=== PATIENT | male | born 1945 | race African-American/Black ===

== ENCOUNTER 2017-10-29 12:14 | Inpatient (IN) | payer MEDICARE ==
[~2017-10-29] VITALS: Ht 182.9 cm; Wt 73.0 kg
[2017-10-29] MEDS ORDERED: IPRA0.2S48 NEB (18:23)
[2017-10-29] MEDS ORDERED: ALBU2.5V38 NEB (18:23)
[2017-10-29] MEDS ORDERED: CARV6.252 PO (18:23)
[2017-10-29] MEDS ORDERED: FURO40TA5 PO (18:23)
[2017-10-29] MEDS ORDERED: BISA-79 PO (18:23)
[2017-10-29] MEDS ORDERED: LORA0.5T PO (18:23)
[2017-10-29] MEDS ORDERED: ONDA4VIA30 IVP (18:23)
[2017-10-29] MEDS ORDERED: AMIO200T2 PO (18:23)
[2017-10-29] MEDS ORDERED: HYDR-3326 PO (18:23)
[2017-10-29] MEDS ORDERED: Z GUARD REMEDY PASTE 57 GM TUBE TOP PRN (18:30)
[2017-10-29] MEDS ORDERED: MAGNESIUM HYDROXIDE 30 ML LIQUID UDC PO PRN (18:30)
[2017-10-29 19:17] VITALS: BP 87/57
--- NOTE | 2017-10-29 19:40 | NUR ---
Received pt in bed, awake and alert. No acute distress noted. Noted 4L NC, tolerating well. Complaining of generalized pain 10/10 on pain scale. Verbally responsive and able to make needs known. Noted right upper extremity triple lumen PICC, intact and patent. Garcia cath intact and draining well clear yellow urine into bag. All safety measures and fall precautions maintained. Call light and all personal belongings within reach. Will continue to monitor.
[2017-10-29] MEDS ORDERED: ONDANSETRON 4 MG/2 ML VIAL IV PRN (19:45)
[2017-10-29] MEDS ORDERED: HYDROCODONE/APAP 5-325MG TABLET PO PRN (19:45)
[2017-10-29] MEDS: CARVEDILOL 6.25 MG TABLET PO SCH (21:00)
[2017-10-29] MEDS: DOCUSATE SODIUM 100 MG CAPSULE PO SCH (21:07)
[2017-10-29] MEDS: ONDANSETRON 4 MG/2 ML VIAL IV PRN (21:09)
[2017-10-29] MEDS: HYDROCODONE/APAP 5-325MG TABLET PO PRN (21:09)
--- NOTE | 2017-10-29 21:10 | NUR ---
PRN pain medication given per MD order. Tolerated well. Safety maintained. Call light within reach.
[2017-10-29] MEDS: IPRATROPIUM BROMIDE 0.5 MG/2.5 ML NEBU NEB SCH (22:39)
[2017-10-29] MEDS: ALBUTEROL SULFATE 2.5 MG/3 ML NEBU NEB SCH (22:39)
[2017-10-29] MEDS ORDERED: DIAZEPAM 10 MG TABLET PO ONE (22:45)
--- NOTE | 2017-10-29 22:50 | NUR ---
Pt noted to be agitated, demanding for sleep medication. MD notified and ordered Diazepam 10 mg PO x 1 now. Order noted and carried out. Well tolerated. Safety maintained. Will continue to monitor. Call light within reach.
[2017-10-30] MEDS: IPRATROPIUM BROMIDE 0.5 MG/2.5 ML NEBU NEB SCH ×6 (02:30→23:05)
[2017-10-30] MEDS: ALBUTEROL SULFATE 2.5 MG/3 ML NEBU NEB SCH ×6 (02:30→23:05)
[2017-10-30 05:31] VITALS: BP 97/71
[2017-10-30] MEDS: HYDROCODONE/APAP 5-325MG TABLET PO PRN ×3 (06:34→23:19)
[2017-10-30] MEDS: PANTOPRAZOLE SODIUM 40 MG TABLET.DR PO SCH (06:34)
--- NOTE | 2017-10-30 07:00 | NUR ---
RECEIVED REPORT FROM FREIGHT CALLER, PATIENT IN BED ASLEEP. A AND O X 2. NO ACUTE DISTRESS NOTED. ON O2 3LPM VIA NC, TOLERATING WELL. W/ PICC LINE TRIPLE LUMEN, INTACT AND PATENT. FC INTACT AND DRAINING WELL. NO COMPLAINTS OF PAIN/DISCOMFORT AT THIS TIME. COMFORT MEASURES PROVIDED. CALL LIGHT WITHIN REACH. WILL CONTINUE TO MONITOR CLOSELY.
[2017-10-30 07:36] LABS: BASOPHILS % (AUTO) 0.9 % (0.0-2.0); EOSINOPHILS # (AUTO) 0.1 K/uL (0.0-0.7); EOSINOPHILS % (AUTO) 1.8 % (0.0-7.0); HEMATOCRIT 26.7 % (36.7-47.1); HEMOGLOBIN 8.8 g/dL (12.5-16.3); MEAN CORPUSCULAR HEMOGLOBIN 29.9 uug (23.8-33.4); MEAN CORPUSCULAR HGB CONC 33 g/dL (32.5-36.3); MONOCYTES # (AUTO) 0.6 K/uL (2.0-10.0); MONOCYTES % (AUTO) 15.4 % (0.0-11.0); NEUTROPHILS # (AUTO) 2.3 K/uL (1.8-8.9); NEUTROPHILS % (AUTO) 56.9 % (38.5-71.5); PLATELET COUNT (AUTO) 123 K/uL (152-348); RED BLOOD CELL COUNT(AUTO) 2.93 MIL/uL (4.06-5.63)
[2017-10-30 07:53] LABS: CREATININE 1.5 mg/dL (0.6-1.3); MAGNESIUM 1.7 mg/dL (1.8-2.4); PHOSPHOROUS 2.8 mg/dL (2.5-4.9)
[2017-10-30 08:37] VITALS: BP 104/79
[2017-10-30] MEDS: FUROSEMIDE 40 MG TABLET PO SCH ×3 (09:00→09:36)
[2017-10-30] MEDS: AMIODARONE HCL 200 MG TABLET PO SCH ×3 (09:00→17:00)
[2017-10-30] MEDS: CARVEDILOL 6.25 MG TABLET PO SCH ×2 (09:00→20:41)
[2017-10-30] MEDS: BISACODYL 5 MG TABLET.DR PO SCH ×2 (09:26→09:27)
[2017-10-30 10:11] LABS: LYMPHOCYTES % (MANUAL) 34 % (20-40); MONOCYTES % (MANUAL) 11 % (2-10); NEUTROPHILS % (MANUAL) 55 % (42-75)
[2017-10-30] MEDS: ONDANSETRON 4 MG/2 ML VIAL IV PRN ×2 (10:52→17:52)
[2017-10-30] MEDS ORDERED: MAGNESIUM OXIDE 400 MG TABLET PO ONE (12:15)
[2017-10-30 12:41] LABS: *AMPHETAMINE, URINE NEGATIVE (NEGATIVE); *BARBITURATE, URINE NEGATIVE (NEGATIVE); *CANNABINOID, URINE NEGATIVE (NEGATIVE); *COCCAINE, URINE NEGATIVE (NEGATIVE); *OPIATE, URINE POSITIVE (NEGATIVE); *PHENCYCLIDINE SCREEN,URINE NEGATIVE (NEGATIVE)
[2017-10-30] MEDS: LORAZEPAM 0.5 MG TABLET PO PRN (15:33)
--- NOTE | 2017-10-30 17:03 | NUR ---
AMNIODERONE HELD DUE TO DECREASED HEART RATE 50 BPM. PATIENT IN STABLE CONDITION WILL CONTINUE TO MONITOR CLOSELY.
--- NOTE | 2017-10-30 17:21 | NUR ---
called and paged dr stahl to inform him about patient's decreased heart rate.
--- NOTE | 2017-10-30 19:30 | NUR ---
Received report from day shift nurse. Patient currently stable lying in bed with no signs of pain, sob, or acute distress. Pertinent assessment completed. On 2L o2 via nc. 1:1 sitter at the bedside. Patient noted with osorio bag. Bed alarm on and checked at start of shift. Bed in low position & locked. Patient on 500 free fluid restriction per day. Call light within reach. Will continue to monitor patient through shift.
[2017-10-30] MEDS: DOCUSATE SODIUM 100 MG CAPSULE PO SCH (20:41)
--- NOTE | 2017-10-30 20:41 | NUR ---
Held Coreg 6.25mg due to BP & HR. BP of 110/73 & HR 61. Will continue to monitor through shift.
[2017-10-30 21:39] VITALS: BP 110/73
[2017-10-30] MEDS: ZOLPIDEM 5 MG TABLET PO PRN (22:07)
[2017-10-31] MEDS: LORAZEPAM 0.5 MG TABLET PO PRN ×2 (01:09→08:31)
--- NOTE | 2017-10-31 01:09 | NUR ---
Patient noted to be anxious and unable to sleep. Administered Ativan per MD order. Will continue to monitor.
[2017-10-31] MEDS: IPRATROPIUM BROMIDE 0.5 MG/2.5 ML NEBU NEB SCH ×6 (03:30→23:03)
[2017-10-31] MEDS: ALBUTEROL SULFATE 2.5 MG/3 ML NEBU NEB SCH ×6 (03:30→23:03)
--- NOTE | 2017-10-31 06:03 | NUR ---
Patient slept intermittently through the night. Was able to sleep after dose of Ativan. All needs attended to promptly. No acute distress noted through the shift. Bed kept in low position, locked, with bed alarm on at all times. Patient kept clean & dry changed per soiling. Call light within reach. Will endorse to day shift nurse.
[2017-10-31] MEDS: PANTOPRAZOLE SODIUM 40 MG TABLET.DR PO SCH (06:18)
--- NOTE | 2017-10-31 07:15 | NUR ---
Patient pulled out PICC line on his own during shift report to day shift RN. No active bleeding noted at the site. No chest pain or sob noted. Day shift sitter was at the bedside during this incident. Day shift charge nurse aware. Day shift RN aware. MD will be informed immediately. Patient is stable with no acute distress noted. patient currently sleeping.
--- NOTE | 2017-10-31 07:20 | NUR ---
came to the pt's room to assess the pt, found picc line next to pt's bed. Per the sitter"he took the line out". No sob noted, no s/s of respiratory distress noted. No pain noted. No bleeding noted at site, all safety needs are met. 1:1 sitter for safety at all times. Pt is awake and able to follow commands. Will continue to monitor.
[2017-10-31] MEDS: BISACODYL 5 MG TABLET.DR PO SCH (08:04)
[2017-10-31] MEDS: FUROSEMIDE 40 MG TABLET PO SCH (08:31)
[2017-10-31 08:55] VITALS: BP 132/69
[2017-10-31] MEDS: CARVEDILOL 6.25 MG TABLET PO SCH ×2 (09:00→20:36)
[2017-10-31] MEDS: AMIODARONE HCL 200 MG TABLET PO SCH ×3 (09:00→17:00)
--- NOTE | 2017-10-31 13:58 | NUR ---
INTERDISCIPLINARY TEAM CONFERENCE
--- NOTE | 2017-10-31 15:52 | NUR ---
Social Work Consult: SW spoke with patient's DPOA Sunil Shaw [[phone]] regarding patient's social security income. Pt's DPOA requested a physician fill out a payee form so that patient can continue receiving his social security income. RACH endorsed information to health unit clerk Yonna and gave her DPOA paperwork and payee form for the physician to sign. RACH also requested a psych consult for patient due to his previous mental health history. RACH consulted with Vani DARDEN regarding case.
--- NOTE | 2017-10-31 16:21 | NUR ---
Informed [facility] of Psyche consult. Dr Delcid informed by Lisa/RN of consult, patient to be seen tomorrow.
--- NOTE | 2017-10-31 19:25 | NUR ---
PT IS LAYING IN BED COMFORTABLY. PT IS CALM AN D COOPERATIVE, NO S/S OF BLEEDING NOTED. NO S/S OF RESPIRATORY DISTRESS NOTED. NO PAIN NOTED. ALL SAFETY NEEDS ARE MET. 1:1 SITTER FOR SAFETY.
[2017-10-31 19:30] VITALS: BP 119/71
--- NOTE | 2017-10-31 19:30 | NUR ---
Patient sleeping at start of shift. No acute distress noted. 1:1 sitter at the bedside for safety. Vital signs WNL. On o2 via nc at 2L with no sob noted. Pertinent assessment completed at start of shift. Bed in low position, locked, with bed alarm on. Patient noted with osorio cath. Call light within reach of patient. Will continue to monitor through shift.
[2017-10-31 20:25] VITALS: BP 119/71
[2017-10-31] MEDS: DOCUSATE SODIUM 100 MG CAPSULE PO SCH (20:35)
--- NOTE | 2017-10-31 20:36 | NUR ---
Held Coreg 6.25mg. Per day shift RN, HR of patient today was in the 50s. HR currently at 66 and BP 119/71 within range. Did not want HR to decrease during the night. Will re assess HR during shift & continue to monitor.
[2017-11-01] MEDS: LORAZEPAM 0.5 MG TABLET PO PRN ×4 (00:11→20:41)
[2017-11-01] MEDS: ALBUTEROL SULFATE 2.5 MG/3 ML NEBU NEB SCH ×6 (02:50→22:47)
[2017-11-01] MEDS: IPRATROPIUM BROMIDE 0.5 MG/2.5 ML NEBU NEB SCH ×6 (02:50→22:47)
--- NOTE | 2017-11-01 06:06 | NUR ---
Patient was awake for most of the night. Showed some signs of agitation. administered Ativan per MD order. Patient was able to sleep after medication administration. No acute distress through the shift. Needs attended to. Safety measures implemented. Sitter at the bedside with patient. Call light within reach. Will endorse to day shift nurse.
[2017-11-01] MEDS: PANTOPRAZOLE SODIUM 40 MG TABLET.DR PO SCH (07:00)
[2017-11-01 07:30] VITALS: BP 99/69
[2017-11-01] MEDS: CARVEDILOL 6.25 MG TABLET PO SCH ×2 (09:00→20:41)
[2017-11-01] MEDS: AMIODARONE HCL 200 MG TABLET PO SCH ×3 (11:59→16:14)
[2017-11-01] MEDS: FUROSEMIDE 40 MG TABLET PO SCH (12:02)
[2017-11-01] MEDS: BISACODYL 5 MG TABLET.DR PO SCH (12:02)
[2017-11-01 14:00] VITALS: BP 101/60
[2017-11-01] MEDS: HYDROCODONE/APAP 5-325MG TABLET PO PRN ×2 (14:09→21:47)
--- NOTE | 2017-11-01 18:30 | NUR ---
Patient was awake and alert and not in acute distress, provided with pain management per nursing and breathing treatment routinely per RT. Needs attended promptly, sitter at bedside, provided with safety, new orders from Dr. Wilson received for labs in the AM and to collect stool, endorsed to night nurse. Communicated with son ambrocio today regarding to speak with case management, endorsed to night nurse.
[2017-11-01 19:30] VITALS: BP 111/66
--- NOTE | 2017-11-01 19:30 | NUR ---
Patient currently lying in bed, awake & alert. No acute distress noted at start of shift. Pertinent assessment completed. On 2L of oxygen via NC. Denies SOB or pain. vital signs within range at start of shift. 1:1 sitter at the bedside. Room checked for safety. Noted with a osorio catheter hanging below level of the bladder & off the floor. Bed is locked with alarm on. Call light within reach. Will continue to monitor through shift.
[2017-11-01] MEDS: DOCUSATE SODIUM 100 MG CAPSULE PO SCH (20:40)
[2017-11-02] MEDS: ACETAMINOPHEN 325 MG TABLET PO PRN (00:31)
[2017-11-02] MEDS: LORAZEPAM 0.5 MG TABLET PO PRN ×2 (00:31→20:51)
--- NOTE | 2017-11-02 00:31 | NUR ---
Patient restless & agitated in bed. Will administer Ativan per MD order & re assess patient through the night.
[2017-11-02] MEDS: ZOLPIDEM 5 MG TABLET PO PRN ×2 (01:57→22:41)
--- NOTE | 2017-11-02 01:57 | NUR ---
Per nursing judgement patient noted with insomnia & unable to sleep. Will administer Ambien per MD order & re assess patient.
[2017-11-02] MEDS: ALBUTEROL SULFATE 2.5 MG/3 ML NEBU NEB SCH ×7 (02:50→23:24)
[2017-11-02] MEDS: IPRATROPIUM BROMIDE 0.5 MG/2.5 ML NEBU NEB SCH ×7 (02:50→23:24)
[2017-11-02] MEDS: PANTOPRAZOLE SODIUM 40 MG TABLET.DR PO SCH (06:12)
[2017-11-02 07:50] LABS: CREATININE 1.4 mg/dL (0.6-1.3); MAGNESIUM 1.6 mg/dL (1.8-2.4); PHOSPHOROUS 2.5 mg/dL (2.5-4.9); POTASSIUM 4.8 mmol/L (3.5-5.1)
[2017-11-02 08:06] LABS: BASOPHILS # (AUTO) 0.1 K/uL (0.0-8.0); BASOPHILS % (AUTO) 0.9 % (0.0-2.0); EOSINOPHILS # (AUTO) 0.1 K/uL (0.0-0.7); EOSINOPHILS % (AUTO) 2.3 % (0.0-7.0); LYMPHOCYTES # (AUTO) 1.1 K/uL (20.0-40.0); LYMPHOCYTES % (AUTO) 16.7 % (20.5-51.5); MEAN CORPUSCULAR HGB CONC 33 g/dL (32.5-36.3); MEAN CORPUSCULAR VOLUME 91.7 fL (73.0-96.2); MONOCYTES # (AUTO) 0.8 K/uL (2.0-10.0); MONOCYTES % (AUTO) 12.3 % (0.0-11.0); NEUTROPHILS # (AUTO) 4.3 K/uL (1.8-8.9); NEUTROPHILS % (AUTO) 67.8 % (38.5-71.5); PLATELET COUNT (AUTO) 121 K/uL (152-348); RED BLOOD CELL COUNT(AUTO) 3.21 MIL/uL (4.06-5.63); WHITE BLOOD COUNT (AUTO) 6.4 K/uL (3.6-10.2)
[2017-11-02 08:07] LABS: HEMATOCRIT 29.4 % (36.7-47.1); HEMOGLOBIN 9.6 g/dL (12.5-16.3)
[2017-11-02] MEDS: FUROSEMIDE 40 MG TABLET PO SCH (09:00)
[2017-11-02] MEDS: CARVEDILOL 6.25 MG TABLET PO SCH ×2 (09:00→20:50)
[2017-11-02 09:40] VITALS: BP 89/52
[2017-11-02] MEDS: BISACODYL 5 MG TABLET.DR PO SCH (09:46)
[2017-11-02] MEDS: AMIODARONE HCL 200 MG TABLET PO SCH ×3 (09:55→18:27)
[2017-11-02 11:39] VITALS: BP 102/75
[2017-11-02 11:40] VITALS: BP 89/62
[2017-11-02 11:41] VITALS: BP 84/64
--- NOTE | 2017-11-02 12:17 | NUR ---
Call to Doctor Natacha for orders regarding low blood pressure. Ok to hold lasix and other bp lowering med. Give amiodarone. Patient complaint of nausea at this time to charge nurse.
[2017-11-02] MEDS: ONDANSETRON HCL 4 MG TABLET PO PRN ×2 (12:27→18:28)
[2017-11-02] MEDS ORDERED: MAGNESIUM OXIDE 400 MG TABLET PO ONE (12:30)
[2017-11-02] MEDS: NICOTINE 21 MG/24HR PATCH TD SCH (17:19)
--- NOTE | 2017-11-02 17:23 | NUR ---
PATIENT HAVING NAUSEA AT THIS TIME AFTER ATTEMPTING TO GO OUT TO SMOKE A CIGARETTE FOUND ON THE GROUND. SITTER STOPPED PATIENT. DOCTOR CANDY ORDER FOR NICOTENE PATCH. PATIENT UP TO COMMODE AT THIS TIME. APPLIED PATCH TO LEFT SHOULDER AT THIS TIME.
[2017-11-02 18:17] VITALS: BP 98/66
--- NOTE | 2017-11-02 19:57 | NUR ---
HANDOFF TO NIGHT NURSE. PATIENT ROUNDS IN BED AT THIS TIME. SITTER AWARE OF PATIENT CONCRETE PAVING SUPERVISOR CONFIRMED WITH DEHYDRATOR TENDER SHE HAD THE SAME PATIENT LAST NIGHT.
[2017-11-02 20:00] VITALS: BP 115/81
--- NOTE | 2017-11-02 20:00 | NUR ---
RECEIVED PATIENT AWAKE IN BED WITH 1:1 SITTER AT BEDSIDE. PATIENT IS A/O X1-2. CONFUSED BUT ABLE TO FOLLOW DIRECTIONS AND MAKES NEEDS KNOWN. VSS. NO C/O PAIN AT THIS TIME. ON O2 4L NC SATING 96%. DENIES SOB. NO RESP. DISTRESS NOTED. F/C INTACT AND PATENT, DRAINING WELL TO GRAVITY. BED ALARM ON. CALL LIGHT IN REACH. ALL NEEDS ATTENDED. WILL CONTINUE TO MONITOR.
[2017-11-02] MEDS: DOCUSATE SODIUM 100 MG CAPSULE PO SCH (20:50)
[2017-11-02] MEDS: HYDROCODONE/APAP 5-325MG TABLET PO PRN (21:19)
[2017-11-03] MEDS: LORAZEPAM 0.5 MG TABLET PO PRN (03:07)
--- NOTE | 2017-11-03 03:10 | NUR ---
PATIENT AWAKE IN BED. VERY ANXIOUS. REPEATEDLY TAKES OFF O2 AND BECOMES SOB. NEEDS FREQUENT REDIRECTION. VERBALIZES UNDERSTANDING, BUT VERY FORGETFUL. PATIENT GIVEN ATIVAN 0.25MG PO PRN FOR ANXIETY. CALL LIGHT IN REACH. BED ALARM ON. WILL CONTINUE TO MONITOR AND ASSESS.
[2017-11-03] MEDS: ALBUTEROL SULFATE 2.5 MG/3 ML NEBU NEB SCH ×6 (03:30→19:24)
[2017-11-03] MEDS: IPRATROPIUM BROMIDE 0.5 MG/2.5 ML NEBU NEB SCH ×6 (03:30→19:24)
--- NOTE | 2017-11-03 04:30 | NUR ---
PATIENT AWAKE IN BED. RESTLESS. SITTER AT BEDSIDE. CALL LIGHT IN REACH. BED ALARM ON. WILL CONTINUE TO MONITOR AND ASSESS.
[2017-11-03] MEDS: PANTOPRAZOLE SODIUM 40 MG TABLET.DR PO SCH (06:08)
--- NOTE | 2017-11-03 06:30 | NUR ---
PATIENT AWAKE IN BED. ONLY SLEPT AT SMALL INTERVALS. NEEDS FREQUENT REINFORCEMENT. CONFUSED AT TIMES. SITTER AT BEDSIDE FOR SAFETY. CALL LIGHT IN REACH. BED ALARM ON. WILL CONTINUE TO MONITOR AND ASSESS.
[2017-11-03] MEDS: BISACODYL 5 MG TABLET.DR PO SCH (08:37)
[2017-11-03] MEDS: FUROSEMIDE 40 MG TABLET PO SCH (08:37)
[2017-11-03] MEDS: NICOTINE 21 MG/24HR PATCH TD SCH (08:38)
[2017-11-03] MEDS: HYDROCODONE/APAP 5-325MG TABLET PO PRN ×2 (08:56→17:34)
[2017-11-03] MEDS: AMIODARONE HCL 200 MG TABLET PO SCH ×3 (09:00→17:33)
[2017-11-03] MEDS: CARVEDILOL 6.25 MG TABLET PO SCH ×2 (09:00→20:48)
[2017-11-03 09:13] VITALS: BP 106/60
--- NOTE | 2017-11-03 10:42 | NUR ---
PHARMACY CLINICAL NOTES (VANCOMYCIN DOSING) S: To continue vanco for 89 yo male with diagnosis of perineum and scrotal cellulitis/lesion. O: BUN/SCR 28/1.6; WBC 9.1; TEMP 97.7 ht 175 cm wt 87.9 kg A/P: Due to elevated srcr & advanced age, will dose by fall off level for now. Will give vanco 1250mg IVPB x1 dose today. Pharmacist shall check srcr & decide when to order vanco random level fo r further dosing. Will follow daily.
--- NOTE | 2017-11-03 12:44 | NUR ---
Patient is alert and oriented x2 with period of confusion. held coreg and amiodarone in AM due to BP 94/58 P 57. not in distress. Continue breathing treatment with good effect. O2 SAT: 99%. no agitation noted during rounds. Call silverman within reach. will continue monitor
--- NOTE | 2017-11-03 15:06 | NUR ---
[employer] Architect: Received call from patient's son/HIPOLITO Barber, ([phone]) following up on Social Security Payee forms. SW followed-up with RNs Jenniffer and Shannon. Forms located in patient's chart. RNs aware to contact son when form is signed by . Pt's son aware. SW will continue to collaborate as needed.
--- NOTE | 2017-11-03 17:03 | NUR ---
I agree Addendum: 11/03/17 at 1703 by ERIBERTO JAUREGUI OT Amended: Links added.
--- NOTE | 2017-11-03 19:30 | NUR ---
Patient lying in bed at start of shift with no signs of acute distress noted. Patient is A/Ox2-3. 1:1 sitter at the bedside. Pertinent assessment completed. Vital signs within range at start of shift. Noted with osorio cath bag below level of the bladder & off the floor. Room checked for safety at start of shift. Bed is in the low position & locked. Call light within reach of patient. Will continue to monitor through shift.
[2017-11-03] MEDS: DOCUSATE SODIUM 100 MG CAPSULE PO SCH (20:47)
[2017-11-03] MEDS: ZOLPIDEM 5 MG TABLET PO PRN (20:47)
[2017-11-03 20:51] VITALS: BP 97/67
[2017-11-04] MEDS: IPRATROPIUM BROMIDE 0.5 MG/2.5 ML NEBU NEB SCH ×6 (00:25→19:12)
[2017-11-04] MEDS: ALBUTEROL SULFATE 2.5 MG/3 ML NEBU NEB SCH ×6 (00:25→19:12)
[2017-11-04] MEDS: HYDROCODONE/APAP 5-325MG TABLET PO PRN ×4 (00:43→21:54)
--- NOTE | 2017-11-04 01:00 | NUR ---
Patient had a change of condition with oxygen desaturation. Patient pulled out nasal canula off & ripped the side of the nc. New NC was brought & put on patient immediately. Patient o2 sat was in the low 80's with labored breathing & audible wheezing. RT was immediately called for breathing treatment. Patient's o2 sat increased to 92% after breathing treatment. MD Murillo called and notified. New orders for STAT ABG's & Chest Xray. Order carried out. ABG results were normal. Waiting for Chest X ray results. Patient currently sleeping. O2 saturation at 93% with no acute distress. sitter at bedside. Will continue to monitor.
[2017-11-04 01:36] LABS: ABG BASE EXCESS 0.1 mmol/L; ABG HCO3 23.1 mmol/L; ABG PCO2 31.6 mmHg (35.0-45.0); ABG PH 7.482 (7.350-7.450); ABG PO2 71.7 mmHg (75.0-100.0); ABG SITE RIGHT RADIAL; COHb 1.6 % (0.5-1.5); MetHb 0.6 % (0.0-1.5); O2Hb 91.9 % (94.0-97.0); VENT MODE Nasal Cannula
--- NOTE | 2017-11-04 06:20 | NUR ---
Patient stable after change of condition. Vitals remained stable. No acute distress noted. oxygen saturation at 94% with 2L oxygen via NC. No SOB noted. Dr. Murillo informed of chest Xray results & ABG results. Per MD, day shift MD should f/u with patient. All needs attended to promptly. Medications given per MD order. Safety measures implemented. Will endorse to day shift nurse.
[2017-11-04] MEDS: PANTOPRAZOLE SODIUM 40 MG TABLET.DR PO SCH (06:23)
--- NOTE | 2017-11-04 07:30 | NUR ---
Sleeping, with O2 at 2L/NC with O2 sat 97%. Garcia catheter to drainage bag intact. Sitter at bedside.
[2017-11-04] MEDS: CARVEDILOL 6.25 MG TABLET PO SCH ×2 (09:00→20:31)
[2017-11-04] MEDS: AMIODARONE HCL 200 MG TABLET PO SCH ×3 (09:17→16:27)
[2017-11-04] MEDS: BISACODYL 5 MG TABLET.DR PO SCH (09:18)
[2017-11-04] MEDS: NICOTINE 21 MG/24HR PATCH TD SCH (09:18)
[2017-11-04] MEDS: FUROSEMIDE 40 MG TABLET PO SCH (09:18)
--- NOTE | 2017-11-04 09:18 | NUR ---
Complaining of generalized pain. Sultana po given. Able to appropriately verbalized needs. Sitter reminded of fluid restriction.
[2017-11-04] MEDS: ONDANSETRON HCL 4 MG TABLET PO PRN (09:34)
[2017-11-04] MEDS ORDERED: MAGNESIUM OXIDE 400 MG TABLET PO ONE (15:15)
[2017-11-04] MEDS ORDERED: AMIODARONE HCL 200 MG TABLET PO SCH (17:00)
[2017-11-04] MEDS ORDERED: FUROSEMIDE 20 MG/2 ML VIAL IV ONE (19:30)
[2017-11-04 20:00] VITALS: BP 111/75
--- NOTE | 2017-11-04 20:00 | NUR ---
Pt received AAO x 1 with 1:1 sitter at bedside for safety. Incentive spirometer at bedside. Education on use of incentive spirometer provided. Vital signs WNL. Pt reminded of fluid restriction. Garcia noted to be draining well. No s/s of respiratory distress noted at this time. Safety measures provided. Will continue to monitor.
[2017-11-04] MEDS: LORAZEPAM 0.5 MG TABLET PO PRN (20:26)
[2017-11-04] MEDS: DOCUSATE SODIUM 100 MG CAPSULE PO SCH (20:26)
[2017-11-04] MEDS: ZOLPIDEM 5 MG TABLET PO PRN (21:54)
[2017-11-04] MEDS ORDERED: FUROSEMIDE 40 MG TABLET PO ONE (22:45)
[2017-11-05] MEDS: ALBUTEROL SULFATE 2.5 MG/3 ML NEBU NEB SCH ×7 (00:06→23:51)
[2017-11-05] MEDS: IPRATROPIUM BROMIDE 0.5 MG/2.5 ML NEBU NEB SCH ×7 (00:06→23:51)
[2017-11-05] MEDS: LORAZEPAM 0.5 MG TABLET PO PRN (01:27)
--- NOTE | 2017-11-05 05:55 | NUR ---
Pt slept intermittently throughout the night and noted to be cooperative at this time. Pt refused 0330 breathing tx, but no respiratory distress noted at this time. Pain management provided as ordered. 1:1 sitter at bedside. All needs attended to. Pt assisted with repositioning throughout shift. Bed in low, locked position. Call light within reach. Will continue to monitor.
[2017-11-05] MEDS: PANTOPRAZOLE SODIUM 40 MG TABLET.DR PO SCH (06:23)
[2017-11-05] MEDS: CLOPIDOGREL 75 MG TABLET PO SCH (08:08)
[2017-11-05] MEDS: FUROSEMIDE 40 MG TABLET PO SCH ×2 (08:08→08:18)
[2017-11-05] MEDS: NICOTINE 21 MG/24HR PATCH TD SCH (08:08)
[2017-11-05] MEDS: BISACODYL 5 MG TABLET.DR PO SCH (08:08)
[2017-11-05] MEDS: CARVEDILOL 6.25 MG TABLET PO SCH ×2 (08:15→21:00)
--- NOTE | 2017-11-05 08:15 | NUR ---
Patients blood pressure was low 85/59 p41. Reported to Eloisa Hurst, no orders received at this time.
--- NOTE | 2017-11-05 09:30 | NUR ---
Patients vitals recorded and an elevation of BP was seen.
[2017-11-05 10:48] VITALS: BP 95/63
[2017-11-05] MEDS: predniSONE 20 MG TABLET PO SCH (15:33)
[2017-11-05] MEDS ORDERED: BISACODYL 10 MG SUPP.RECT RC PRN (18:15)
--- NOTE | 2017-11-05 18:50 | NUR ---
Patient has been cooperative with care. No distress noted at this time, bedsides the patient complaining of not having a bowel movement and being constipated. Bed is in low position, side rails upx 2, bed alarm on. Sitter at bedside.
[2017-11-05 18:57] VITALS: BP 108/71
[2017-11-05 19:30] VITALS: BP 102/61
--- NOTE | 2017-11-05 20:00 | NUR ---
Received pt lying comfortably in bed, alert and awake. Sitter at bedside. No acute distress noted. No complaints of pain or discomfort at this time. on o2 2LPM NC, no SOB noted. Garcia catheter intact and patent, with clear yellow urine draining. Vital signs stable. Kept clean, dry and comfortable. Call light within reach. Safety and fall precautions observed and maintained. All needs attended.
[2017-11-05] MEDS: DOCUSATE SODIUM 100 MG CAPSULE PO SCH (21:24)
[2017-11-05] MEDS: HYDROCODONE/APAP 5-325MG TABLET PO PRN (21:25)
[2017-11-06] MEDS: ALBUTEROL SULFATE 2.5 MG/3 ML NEBU NEB SCH ×7 (03:49→22:58)
[2017-11-06] MEDS: IPRATROPIUM BROMIDE 0.5 MG/2.5 ML NEBU NEB SCH ×7 (03:49→22:58)
--- NOTE | 2017-11-06 05:29 | NUR ---
Patient slept intermittently throughout the shift with no signs/symptoms of distress noted. Sitter at bedside. No complaints of pain or discomfort. no SOB noted. Fluid restriction maintained. Kept clean, dry and comfortable. Safety and fall precautions observed and maintained. All needs attended.
[2017-11-06] MEDS: PANTOPRAZOLE SODIUM 40 MG TABLET.DR PO SCH (06:38)
[2017-11-06 07:21] LABS: BASOPHILS % (AUTO) 0.1 % (0.0-2.0); HEMATOCRIT 28.6 % (36.7-47.1); HEMOGLOBIN 9.6 g/dL (12.5-16.3); LYMPHOCYTES # (AUTO) 0.7 K/uL (20.0-40.0); LYMPHOCYTES % (AUTO) 24.9 % (20.5-51.5); MEAN CORPUSCULAR HEMOGLOBIN 30.4 uug (23.8-33.4); MEAN CORPUSCULAR HGB CONC 33 g/dL (32.5-36.3); MONOCYTES # (AUTO) 0.1 K/uL (2.0-10.0); MONOCYTES % (AUTO) 3.6 % (0.0-11.0); NEUTROPHILS % (AUTO) 71.4 % (38.5-71.5); PLATELET COUNT (AUTO) 121 K/uL (152-348); RED BLOOD CELL COUNT(AUTO) 3.15 MIL/uL (4.06-5.63); WHITE BLOOD COUNT (AUTO) 2.8 K/uL (3.6-10.2)
[2017-11-06 07:45] VITALS: BP 93/45
[2017-11-06 07:58] LABS: CREATININE 1.6 mg/dL (0.6-1.3); MAGNESIUM 1.4 mg/dL (1.8-2.4); PHOSPHOROUS 3.4 mg/dL (2.5-4.9); POTASSIUM 4.4 mmol/L (3.5-5.1)
[2017-11-06] MEDS ORDERED: MAGNESIUM OXIDE 400 MG TABLET PO ONE (08:45)
[2017-11-06] MEDS: CARVEDILOL 6.25 MG TABLET PO SCH ×2 (09:00→20:45)
[2017-11-06] MEDS ORDERED: FUROSEMIDE 20 MG TABLET PO SCH (09:00)
[2017-11-06] MEDS ORDERED: FUROSEMIDE 40 MG TABLET PO SCH (09:00)
[2017-11-06] MEDS: predniSONE 20 MG TABLET PO SCH (09:09)
[2017-11-06] MEDS: BISACODYL 5 MG TABLET.DR PO SCH (09:09)
[2017-11-06] MEDS: CLOPIDOGREL 75 MG TABLET PO SCH (09:09)
[2017-11-06] MEDS: NICOTINE 21 MG/24HR PATCH TD SCH (09:09)
[2017-11-06] MEDS: HYDROCODONE/APAP 5-325MG TABLET PO PRN ×2 (09:34→20:40)
[2017-11-06] MEDS: ESCITALOPRAM OXALATE 10 MG TABLET PO SCH (15:30)
--- NOTE | 2017-11-06 19:18 | NUR ---
SBAR report received this morning. Sitter remained at bedside. All needs attended to. Bed in lowest, locked position with side rails up x2. Pt kept clean and dry. Garcia intact at this time. Dietary consulted r/t maintaining 500ml fluid restriction with "dry meal trays". Pt compliant with routine medication administration, pain managed by PRN medication, and Coreg held due to decreased BP of 93/45. No acute distress or SOB this shift. Call light within reach. Will endorse to oncoming shift mechanic.
--- NOTE | 2017-11-06 19:30 | NUR ---
Received pt lying with HOB elevated, alert, oriented x2 with episodes of confusion. Sitter at bedside. Complaining of generalized body pain, norco PRN will be given. Still on o2 2LPM via NC, no SOB noted, no wheezing. Garcia catheter intact and patent with clear yellow urine draining. Assisted to the bathroom as needed, pt had a large bowel movement. Vital signs stable. Kept clean, dry and comfortable. All needs anticipated.
[2017-11-06 20:00] VITALS: BP 114/67
[2017-11-06] MEDS: DOCUSATE SODIUM 100 MG CAPSULE PO SCH (20:40)
[2017-11-06] MEDS ORDERED: ZOLPIDEM 5 MG TABLET ONE (23:20)
[2017-11-06] MEDS: ZOLPIDEM 5 MG TABLET PO PRN (23:23)
[2017-11-07] MEDS: IPRATROPIUM BROMIDE 0.5 MG/2.5 ML NEBU NEB SCH ×8 (03:30→23:03)
[2017-11-07] MEDS: ALBUTEROL SULFATE 2.5 MG/3 ML NEBU NEB SCH ×8 (03:30→23:04)
[2017-11-07] MEDS: PANTOPRAZOLE SODIUM 40 MG TABLET.DR PO SCH (06:28)
[2017-11-07 08:00] VITALS: BP 121/77
[2017-11-07] MEDS: predniSONE 20 MG TABLET PO SCH (08:43)
[2017-11-07] MEDS: BISACODYL 5 MG TABLET.DR PO SCH (08:45)
[2017-11-07] MEDS: ESCITALOPRAM OXALATE 10 MG TABLET PO SCH (08:46)
[2017-11-07] MEDS: CLOPIDOGREL 75 MG TABLET PO SCH (08:46)
[2017-11-07] MEDS: HYDROCODONE/APAP 5-325MG TABLET PO PRN ×2 (08:51→20:47)
[2017-11-07] MEDS: CARVEDILOL 6.25 MG TABLET PO SCH ×2 (09:00→20:48)
[2017-11-07] MEDS: NICOTINE 21 MG/24HR PATCH TD SCH (09:00)
[2017-11-07 15:51] VITALS: BP 109/65
[2017-11-07] MEDS: FUROSEMIDE 20 MG TABLET PO SCH (17:38)
--- NOTE | 2017-11-07 18:58 | NUR ---
SBAR report received this morning, board updated. Pt assessed, reports c/o generalized pain treated with PRN pain medication to resolve. Pt assisted to restroom for BM x2, osorio catheter intact draining clear yellow urine. Pt kept clean and dry. 1:1 sitter remains at bedside. Bed in locked and lowest position with side rails up x2. Pt compliant with routine medication administration, Lasix and Coreg held this morning due to decreased BP. Pt currently sleeping soundly. All comfort and safety needs met. Call light placed within reach. Will continue to monitor and endorse to oncoming manufacturing shift supervisor.
[2017-11-07 19:47] VITALS: BP 114/77
--- NOTE | 2017-11-07 19:55 | NUR ---
Received pt lying with HOB elevated, awake and alert with no apparent distress noted. Denies pain at this time. On o2 2LPM via NC, no shortness of breath noted. Garcia cath intact and patent. Encouraged to verbalize needs and concerns. Side rails up x2. Bed alarm on. Bed locked and in lowest position. All needs anticipated.
[2017-11-07] MEDS: DOCUSATE SODIUM 100 MG CAPSULE PO SCH (20:47)
[2017-11-08] MEDS: ALBUTEROL SULFATE 2.5 MG/3 ML NEBU NEB SCH ×6 (03:30→23:02)
[2017-11-08] MEDS: IPRATROPIUM BROMIDE 0.5 MG/2.5 ML NEBU NEB SCH ×6 (03:30→23:02)
[2017-11-08] MEDS: ONDANSETRON HCL 4 MG TABLET PO PRN (05:19)
--- NOTE | 2017-11-08 05:40 | NUR ---
Pt had 1x episode of nausea and vomiting, zofran PRN given. No complaints of pain or discomfort. No SOB noted. Will continue to monitor pt.
--- NOTE | 2017-11-08 05:58 | NUR ---
Pt slept intermittently throughout the shift with no apparent distress noted. Pt had a bowel movement. Complained of generalized body pain, norco PRN will be given. osorio catheter intact and patent. Safety an fall precautions observed and maintained. All needs attended.
[2017-11-08] MEDS: PANTOPRAZOLE SODIUM 40 MG TABLET.DR PO SCH (06:32)
[2017-11-08] MEDS: HYDROCODONE/APAP 5-325MG TABLET PO PRN ×2 (06:33→17:47)
[2017-11-08 06:49] VITALS: BP 108/66
[2017-11-08 06:55] LABS: CREATININE 1.5 mg/dL (0.6-1.3); POTASSIUM 4.8 mmol/L (3.5-5.1)
[2017-11-08 08:00] VITALS: BP 104/73
[2017-11-08] MEDS: BISACODYL 5 MG TABLET.DR PO SCH (09:46)
[2017-11-08] MEDS: CLOPIDOGREL 75 MG TABLET PO SCH (09:47)
[2017-11-08] MEDS: ESCITALOPRAM OXALATE 10 MG TABLET PO SCH (09:47)
[2017-11-08] MEDS: CARVEDILOL 6.25 MG TABLET PO SCH ×2 (09:47→20:44)
[2017-11-08] MEDS: FUROSEMIDE 20 MG TABLET PO SCH ×2 (09:47→17:47)
[2017-11-08] MEDS: predniSONE 20 MG TABLET PO SCH (09:56)
[2017-11-08] MEDS: NICOTINE 21 MG/24HR PATCH TD SCH (09:57)
--- NOTE | 2017-11-08 10:00 | NUR ---
Report received.Pt received in bed with sitter at bedside.Pt is dosing intermittently .Denies pain,discomfort.No s/s of agitation or distress noted.Will continue to monitor.
--- NOTE | 2017-11-08 14:16 | NUR ---
SEEN,EXAMINED BY .
[2017-11-08 16:03] VITALS: BP 99/62
--- NOTE | 2017-11-08 17:51 | NUR ---
Pt remains awake,alert with periods of confusion.Medicated with Richardson 1 tab c/o generalized pain.Will continue to monitor.
[2017-11-08 20:33] VITALS: BP 105/59
[2017-11-08] MEDS: LORAZEPAM 0.5 MG TABLET PO PRN (20:43)
[2017-11-08] MEDS: DOCUSATE SODIUM 100 MG CAPSULE PO SCH (20:43)
[2017-11-08] MEDS: ZOLPIDEM 5 MG TABLET PO PRN (21:22)
--- NOTE | 2017-11-08 21:30 | NUR ---
Pt refusing sitter and telling sitter to get out of the room. Pt stated that he does not like his male sitter. Teachings provided regarding the need of sitter. Quartz Cutter came in to talk to the pt. New sitter will be given. Will continue to monitor.
--- NOTE | 2017-11-08 23:30 | NUR ---
Pt agitated, verbally abusive to sitter, and threatening staff. Notified MD. ordered Ativan 1mg IV q6h prn. Told MD that pt is a hard stick pt and uncooperative with inserting IV. Pt also recently pulled out his PICC line. Requested for another order to . No response at this time. Will continue to monitor pt.
--- NOTE | 2017-11-08 23:40 | NUR ---
[facility] called the unit stating that pt in [facility] called them and reported a missing money. [facility]YCE wanted to know if pt is okay. Situation was explained to them. Pt is in bed at this time and watching TV. Pt kept stating about missing money and telling a story of 6 years ago. Will check belonging's list and check patient's belongings at bedside.
[2017-11-09] MEDS: HYDROCODONE/APAP 5-325MG TABLET PO PRN
--- NOTE | 2017-11-09 00:19 | NUR ---
No response from MD yet at this time. Closely monitoring pt. Pt does not want sitter to be at bedside but allows nurses to check on him from time to time. Pt seems to calmed down a little bit now. Pt asked and was given pain med. Doing 15 min check on pt at this time. Will continue to monitor.
--- NOTE | 2017-11-09 00:27 | NUR ---
Pt sleeping at this time. On 2L O2 via NC, tolerating well. Garcia catheter draining well with yellow colored urine. Will continue to monitor.
[2017-11-09] MEDS: LORAZEPAM 0.5 MG TABLET PO PRN (00:51)
[2017-11-09] MEDS: IPRATROPIUM BROMIDE 0.5 MG/2.5 ML NEBU NEB SCH ×6 (03:22→23:15)
[2017-11-09] MEDS: ALBUTEROL SULFATE 2.5 MG/3 ML NEBU NEB SCH ×6 (03:22→23:15)
[2017-11-09 06:11] VITALS: BP 92/61
[2017-11-09] MEDS: PANTOPRAZOLE SODIUM 40 MG TABLET.DR PO SCH (06:26)
[2017-11-09 07:52] LABS: CREATININE 1.5 mg/dL (0.6-1.3); MAGNESIUM 1.7 mg/dL (1.8-2.4); PHOSPHOROUS 4.1 mg/dL (2.5-4.9); POTASSIUM 4.3 mmol/L (3.5-5.1)
[2017-11-09 08:00] VITALS: BP 124/73
[2017-11-09] MEDS: predniSONE 20 MG TABLET PO SCH (08:25)
[2017-11-09 08:37] LABS: BASOPHILS # (AUTO) 0.1 K/uL (0.0-8.0); BASOPHILS % (AUTO) 0.6 % (0.0-2.0); LYMPHOCYTES # (AUTO) 0.7 K/uL (20.0-40.0); LYMPHOCYTES % (AUTO) 6.9 % (20.5-51.5); MEAN CORPUSCULAR HEMOGLOBIN 29.8 uug (23.8-33.4); MEAN CORPUSCULAR HGB CONC 33 g/dL (32.5-36.3); MEAN CORPUSCULAR VOLUME 91.8 fL (73.0-96.2); MONOCYTES # (AUTO) 0.6 K/uL (2.0-10.0); MONOCYTES % (AUTO) 5.9 % (0.0-11.0); NEUTROPHILS # (AUTO) 8.4 K/uL (1.8-8.9); NEUTROPHILS % (AUTO) 86.6 % (38.5-71.5); PLATELET COUNT (AUTO) 118 K/uL (152-348); RED BLOOD CELL COUNT(AUTO) 3.44 MIL/uL (4.06-5.63)
[2017-11-09 08:43] LABS: HEMATOCRIT 31.6 % (36.7-47.1); HEMOGLOBIN 10.3 g/dL (12.5-16.3); WHITE BLOOD COUNT (AUTO) 9.6 K/uL (3.6-10.2)
[2017-11-09] MEDS: NICOTINE 21 MG/24HR PATCH TD SCH (10:28)
[2017-11-09] MEDS: CARVEDILOL 6.25 MG TABLET PO SCH ×2 (10:29→20:44)
[2017-11-09] MEDS: BISACODYL 5 MG TABLET.DR PO SCH (10:30)
[2017-11-09] MEDS: FUROSEMIDE 20 MG TABLET PO SCH ×3 (10:30→17:06)
[2017-11-09] MEDS: ESCITALOPRAM OXALATE 10 MG TABLET PO SCH (10:30)
[2017-11-09] MEDS: CLOPIDOGREL 75 MG TABLET PO SCH (10:30)
[2017-11-09] MEDS ORDERED: MAGNESIUM OXIDE 400 MG TABLET PO ONE (11:15)
[2017-11-09 16:00] VITALS: BP 101/54
[2017-11-09] MEDS: ONDANSETRON HCL 4 MG TABLET PO PRN (18:36)
[2017-11-09 18:37] VITALS: BP 97/52
--- NOTE | 2017-11-09 19:34 | NUR ---
Handoff with night nurse at this time. Patient needs met. Described patient sleeping patter of daytime and awake at night time. He has discharge plan for local area snf and the son has left another request for a statement from the Doctor regarding what events led up to the events of hospitalization for justification to social security.
--- NOTE | 2017-11-09 20:00 | NUR ---
PATIENT IS AWAKE IN BED, HE'S AAOX2 WITH CONFUSION. NO ACUTE DISTRESS NOTED ON ASSESSMENT. LUNGS ARE CLEAR TO AUSCULTATE WITH NO CONGESTION. SITTER REMAINS AT BEDSIDE WITH CLOSE MONITORING OF PATIENT. SAFETY MEASURES IN PLACE,WILL CONTINUE TO MONITOR PATIENT
[2017-11-09 20:18] VITALS: BP 100/65
[2017-11-09] MEDS: DOCUSATE SODIUM 100 MG CAPSULE PO SCH (20:44)
[2017-11-10] MEDS: ALBUTEROL SULFATE 2.5 MG/3 ML NEBU NEB SCH ×6 (03:18→22:53)
[2017-11-10] MEDS: IPRATROPIUM BROMIDE 0.5 MG/2.5 ML NEBU NEB SCH ×6 (03:18→22:53)
[2017-11-10 04:00] VITALS: BP 106/70
[2017-11-10] MEDS: PANTOPRAZOLE SODIUM 40 MG TABLET.DR PO SCH (06:22)
--- NOTE | 2017-11-10 06:23 | NUR ---
PATIENT SLEPT ON AND OFF THROUGHOUT THE SHIFT. HE REMAINS CONFUSED, REORIENTATION PROVIDED. PATIENT IS ASLEEP WITH NO ACUTE DISTRESS AT PRESENT. TYLENOL WAS GIVEN X1ON THIS SHIFT. SAFETY MEASURES MAINTAINED AT ALL TIMES
[2017-11-10 07:32] VITALS: BP 124/76
--- NOTE | 2017-11-10 08:00 | NUR ---
Pt.sleeping,no s/s of distress or pain noted.
[2017-11-10] MEDS: NICOTINE 21 MG/24HR PATCH TD SCH (08:48)
[2017-11-10] MEDS: FUROSEMIDE 20 MG TABLET PO SCH ×2 (08:48→16:35)
[2017-11-10] MEDS: predniSONE 20 MG TABLET PO SCH (08:48)
[2017-11-10] MEDS: CLOPIDOGREL 75 MG TABLET PO SCH (08:48)
[2017-11-10] MEDS: ESCITALOPRAM OXALATE 10 MG TABLET PO SCH (08:48)
[2017-11-10] MEDS: BISACODYL 5 MG TABLET.DR PO SCH (08:49)
[2017-11-10] MEDS: CARVEDILOL 6.25 MG TABLET PO SCH ×2 (08:50→20:31)
[2017-11-10] MEDS ORDERED: LORAZEPAM 0.5 MG TABLET PO PRN (11:45)
--- NOTE | 2017-11-10 13:20 | NUR ---
A/A/Ox2 eating lunch,cooperative,sitter at bedside.
[2017-11-10 14:38] VITALS: BP 100/54
--- NOTE | 2017-11-10 17:58 | NUR ---
Pt. eating dinner ,no s/s of distress,denies any pain.
[2017-11-10] MEDS: TRAZODONE 50 MG TABLET PO SCH (20:30)
[2017-11-10] MEDS: DOCUSATE SODIUM 100 MG CAPSULE PO SCH (20:31)
[2017-11-10] MEDS: HYDROCODONE/APAP 5-325MG TABLET PO PRN (20:35)
[2017-11-10 20:52] VITALS: BP 105/66
--- NOTE | 2017-11-10 21:38 | NUR ---
aaox2-3 with periods of confusion. calm and pleasant. follow simple commands. sitter at bedside. no signs of agitation or restlessness. tolerated po meds well. complained of generalized pain, norco 1tab given as ordered. will monitor for effectiveness. ambulates to the BR with supervision. BM noted. osorio catheter intact draining well. fluid restriction maintained.
[2017-11-11] MEDS: IPRATROPIUM BROMIDE 0.5 MG/2.5 ML NEBU NEB SCH ×6 (02:32→23:13)
[2017-11-11] MEDS: ALBUTEROL SULFATE 2.5 MG/3 ML NEBU NEB SCH ×6 (02:32→23:13)
[2017-11-11 05:22] VITALS: BP 103/66
[2017-11-11] MEDS: PANTOPRAZOLE SODIUM 40 MG TABLET.DR PO SCH (06:22)
--- NOTE | 2017-11-11 07:02 | NUR ---
slept well.itter at bedside. no acute distress noted. osorio catheter draining yellow urine. kept comfortable. will monitor patient. sitter at bedside. no acute distress noted. kept comfortable. will monitor patient. calm and quiet.
[2017-11-11 07:34] VITALS: BP 104/61
[2017-11-11] MEDS: CLOPIDOGREL 75 MG TABLET PO SCH (08:09)
[2017-11-11] MEDS: FUROSEMIDE 20 MG TABLET PO SCH ×2 (08:10→17:04)
[2017-11-11] MEDS: BISACODYL 5 MG TABLET.DR PO SCH (08:10)
[2017-11-11] MEDS: predniSONE 20 MG TABLET PO SCH (08:10)
[2017-11-11] MEDS: NICOTINE 21 MG/24HR PATCH TD SCH (08:11)
[2017-11-11] MEDS: ESCITALOPRAM OXALATE 10 MG TABLET PO SCH (08:11)
[2017-11-11] MEDS: CARVEDILOL 6.25 MG TABLET PO SCH ×2 (08:14→21:00)
[2017-11-11 14:49] VITALS: BP 114/54
[2017-11-11] MEDS: MAGNESIUM OXIDE 400 MG TABLET PO SCH (17:04)
--- NOTE | 2017-11-11 18:26 | NUR ---
Patient resting in bed, in no distress. Patient c/o of constipation, administered medications as ordered, patient teachings provided, patient verbalized understanding. Garcia cath intact/patent, draining yellow urine. Patient is cooperative with care, no behavioral incidents noted throughout the shift. 1:1 sitter provided for safety.
[2017-11-11] MEDS: ACETAMINOPHEN 325 MG TABLET PO PRN (18:41)
[2017-11-11 20:00] VITALS: BP 107/62
--- NOTE | 2017-11-11 20:00 | NUR ---
Received pt on bed alert and awake with no episodes of confusion. No apparent distress noted. No complaints of pain or discomfort at this time. On 1:1 sitter for safety. on o2 2LPM NC, no SOB noted. BP meds held, BP 107/62. Garcia cath intact and patent with clear, yellow urine draining. kept clean, dry and comfortable. Safety and fall precautions observed and maintained. Call light within reach. all needs attended.
[2017-11-11] MEDS: DOCUSATE SODIUM 100 MG CAPSULE PO SCH (21:08)
[2017-11-11] MEDS: TRAZODONE 50 MG TABLET PO SCH (21:08)
[2017-11-12] MEDS: IPRATROPIUM BROMIDE 0.5 MG/2.5 ML NEBU NEB SCH ×4 (02:59→15:30)
[2017-11-12] MEDS: ALBUTEROL SULFATE 2.5 MG/3 ML NEBU NEB SCH ×4 (03:00→15:30)
[2017-11-12] MEDS: PANTOPRAZOLE SODIUM 40 MG TABLET.DR PO SCH (06:30)
[2017-11-12 06:57] VITALS: BP 102/57
[2017-11-12 07:15] VITALS: BP 107/57
[2017-11-12 07:30] LABS: BASOPHILS % (AUTO) 0.1 % (0.0-2.0); EOSINOPHILS % (AUTO) 0.2 % (0.0-7.0); HEMATOCRIT 30.1 % (36.7-47.1); HEMOGLOBIN 10.1 g/dL (12.5-16.3); LYMPHOCYTES # (AUTO) 0.8 K/uL (20.0-40.0); LYMPHOCYTES % (AUTO) 11.2 % (20.5-51.5); MEAN CORPUSCULAR HEMOGLOBIN 30.1 uug (23.8-33.4); MEAN CORPUSCULAR HGB CONC 34 g/dL (32.5-36.3); MEAN CORPUSCULAR VOLUME 89.9 fL (73.0-96.2); MONOCYTES # (AUTO) 0.5 K/uL (2.0-10.0); MONOCYTES % (AUTO) 6.9 % (0.0-11.0); NEUTROPHILS # (AUTO) 5.9 K/uL (1.8-8.9); NEUTROPHILS % (AUTO) 81.6 % (38.5-71.5); PLATELET COUNT (AUTO) 157 K/uL (152-348); RED BLOOD CELL COUNT(AUTO) 3.35 MIL/uL (4.06-5.63); WHITE BLOOD COUNT (AUTO) 7.3 K/uL (3.6-10.2)
[2017-11-12 07:42] LABS: CREATININE 1.3 mg/dL (0.6-1.3); MAGNESIUM 1.6 mg/dL (1.8-2.4); POTASSIUM 4.2 mmol/L (3.5-5.1)
[2017-11-12] MEDS: predniSONE 20 MG TABLET PO SCH (08:00)
[2017-11-12] MEDS: ESCITALOPRAM OXALATE 10 MG TABLET PO SCH (09:00)
[2017-11-12] MEDS: FUROSEMIDE 20 MG TABLET PO SCH ×2 (09:00→17:52)
[2017-11-12] MEDS: CARVEDILOL 6.25 MG TABLET PO SCH (09:00)
[2017-11-12] MEDS: BISACODYL 5 MG TABLET.DR PO SCH (11:42)
[2017-11-12] MEDS: MAGNESIUM OXIDE 400 MG TABLET PO SCH ×2 (11:42→17:52)
[2017-11-12] MEDS: NICOTINE 21 MG/24HR PATCH TD SCH (11:44)
[2017-11-12] MEDS: CLOPIDOGREL 75 MG TABLET PO SCH (11:44)
[2017-11-12] MEDS ORDERED: MAGNESIUM OXIDE 400 MG TABLET PO ONE (15:15)
[2017-11-12 15:32] VITALS: BP 115/69
--- NOTE | 2017-11-12 17:36 | NUR ---
D/C NOTE READY TO BE PICKED UP BY [facility] AT 1800. SKIN PICS TAKEN. D/C ORDER ON FILE. INSTRUCTIONS GIVEN TO PT. VERBALIZED UNDERSTANDING
== END 2017-11-12 20:23 | disposition home health service (06) | DRG 280 ==
PROVIDERS: ADMIT Physical Medicine & Rehabilitation Pain Medicine; ATTEND Physical Medicine & Rehabilitation Pain Medicine
DX: I13.0 Hypertensive heart and chronic kidney disease with heart failure and stage 1 through stage 4 chronic kidney disease, or unspecified chronic kidney disease (principal); I50.43 Acute on chronic combined systolic (congestive) and diastolic (congestive) heart failure; I21.4 Non-ST elevation (NSTEMI) myocardial infarction; N17.9 Acute kidney failure, unspecified; I31.3 Pericardial effusion (noninflammatory); E83.42 Hypomagnesemia; E87.1 Hypo-osmolality and hyponatremia; I42.9 Cardiomyopathy, unspecified; B19.20 Unspecified viral hepatitis C without hepatic coma; F10.20 Alcohol dependence, uncomplicated; E78.5 Hyperlipidemia, unspecified; N18.9 Chronic kidney disease, unspecified; I25.10 Atherosclerotic heart disease of native coronary artery without angina pectoris; Z95.810 Presence of automatic (implantable) cardiac defibrillator; K21.9 Gastro-esophageal reflux disease without esophagitis; D64.9 Anemia, unspecified; F32.9 Major depressive disorder, single episode, unspecified; J43.9 Emphysema, unspecified; G89.29 Other chronic pain; I48.0 Paroxysmal atrial fibrillation; M16.11 Unilateral primary osteoarthritis, right hip; M89.9 Disorder of bone, unspecified; Z96.642 Presence of left artificial hip joint; R41.0 Disorientation, unspecified
CPT/HCPCS: 36415; 36600; 71045; 80307; 80346; 80361; 83550; 83735; 84100; 85025; 92526; 92610; 93005; 94640; 94664; 97110; 97112; 97116; 97165; 97530; 97535; J1940; J2405; J3590; J7512; Q0162